=== PATIENT | female | born 1955 | race American Indian/Alaskan Native ===

== ENCOUNTER 2018-01-05 08:45 | Day surgery (SDC) | payer MEDICAID ==
--- NOTE | 2018-01-05 11:46 | CP.SDSHP ---
Same Day Surgery H & P - History Proposed Procedure: EGD and colonoscopy Pre-Op Diagnosis: HCV and screening colonoscopy - Allergies Allergies: Allergies No Known Allergies Allergy (Verified 01/05/18 09:18) - Physical Exam Vital Signs: Vital Signs 01/05/18 01/05/18 01/05/18 09:18 09:31 11:08 Temperature 96 F L 96 F L 96 F L Pulse Rate 66 66 66 Respiratory 20 20 20 Rate Blood Pressure 149/72 149/72 149/72 O2 Sat by Pulse 97 97 97 Oximetry Mental Status: Alert & Oriented x3 Neuro: WNL Heart: WNL Lungs: WNL GI: WNL - {Optional Preform as Required} Abdomen: WNL - Impression Impression: proceed with planned procedure Pt. Evaluated Today:Candidate for Anesthesia & Procedure: Yes Short Stay Discharge - Short Stay Discharge Admitting Diagnosis/Reason for Visit: ENCOUNTER FOR SCREENING FOR MALIGNANT NEOPLASM OF Disposition: HOME/ ROUTINE Referrals: Mike Mackenzie MD [Primary Care Provider] -
[2018-01-05] MEDS ORDERED: Midazolam 2 MG/2 ML VIAL ONE (11:51)
[2018-01-05] MEDS ORDERED: Propofol 10 mg/ml Inj (20 ML) ONE ×2 (11:51→12:05)
[2018-01-05] MEDS ORDERED: Lactated Ringer's 1,000 ML IV ONE (12:10)
[2018-01-05 12:36] VITALS: TEMP 97.9
[2018-01-05 14:08] VITALS: BP 150/71; PULSE 56; RESP 12; O2SAT 98
== END 2018-01-05 13:35 | disposition home or self-care (01) ==
LOC: C.ENDO 08:45
PROVIDERS: ATTEND Internal Medicine Gastroenterology
DX: Z12.11 Encounter for screening for malignant neoplasm of colon (principal); B18.2 Chronic viral hepatitis C; K29.50 Unspecified chronic gastritis without bleeding; B96.81 Helicobacter pylori [H. pylori] as the cause of diseases classified elsewhere; K44.9 Diaphragmatic hernia without obstruction or gangrene
CPT/HCPCS: 43239; 45378; 88305; 88342; J2250; J2704; J7120